=== PATIENT | male | born 1955 | race Caucasian/White ===

== ENCOUNTER → 2020-01-23 16:42 | Outpatient (CLI) | payer MEDICAID, SELFPAY ==
[2020-01-23 17:01] LABS: Basophils # 0.1 K/mm3 (0-0.2); Basophils % 0.7 % (0.1-2.0); Eosinophils # 0.6 K/mm3 (0.0-0.4); Eosinophils % 7.2 % (0.1-12.0); Hematocrit 41.8 % (42.0-52.0); Hemoglobin 14.1 g/dL (14.1-18.0); Lymphocytes # 1.5 K/mm3 (0.7-4.5); Lymphocytes % 17.8 % (10-50); Mean Corpuscular HGB Conc 33.8 g/dL (31.8-35.4); Mean Corpuscular Hemoglobin 29.9 pg (27.0-31.2); Mean Corpuscular Volume 88.6 fl (80-94); Mean Platelet Volume 7.2 fl (7.4-10.4); Monocytes # 0.5 K/mm3 (0.1-1.0); Monocytes % 5.8 % (1.7-9.3); Neutrophils # 5.8 K/mm3 (1.8-7.8); Neutrophils % 68.6 % (37.0-80.0); Platelet Count 274 K/mm3 (142-424); Red Blood Count 4.71 M/mm3 (4.60-6.20); Red Cell Distribution Width 13.6 % (11.5-17.5); White Blood Count 8.4 K/mm3 (4.8-10.8)
[2020-01-23 17:51] LABS: Alanine Aminotransferase 55 U/L (12-78); Albumin Level 4.2 g/dl (3.5-5.0); Albumin/Globulin Ratio 1.6 (1.1-1.8); Alkaline Phosphatase 81 U/L (38-126); Anion Gap 9.9 mEq/L (5-15); Aspartate Amino Transferase 34 U/L (17-59); Bilirubin,Total 0.2 mg/dl (0.2-1.3); Blood Urea Nitrogen 12 mg/dl (9-20); Calcium 9.4 mg/dl (8.4-10.2); Carbon Dioxide 29 mmol/L (22.0-30.0); Chloride 104 mmol/L (98-107); Estimated Glomerular Filt Rate 114 ml/min (>60); GFR (African American) 138 ML/MIN (>60); Globulin 2.7 g/dL (1.3-3.2); Glucose 105 mg/dl (74-100); Potassium 3.9 mmoL/L (3.5-5.1); Sodium 139 mmol/L (136-145); Total Protein,Serum 6.9 g/dl (6.3-8.2)
[2020-01-23 18:07] LABS: Free T4 (Free Thyroxine) 0.96 ng/dl (0.78-2.19)
[2020-01-23 18:22] LABS: Thyroid Stimulating Hormone 5.15 uIU/mL (0.465-4.68)
== END ==
PROVIDERS: Visit Provider Emergency Medicine
DX: R60.9 Edema, unspecified (principal)
CPT/HCPCS: 80053; 84439; 84443; 85025

== ENCOUNTER → 2020-01-27 15:49 | Outpatient (CLI) | payer MEDICAID, SELFPAY ==
--- NOTE | 2020-01-27 15:50 | CA_ITS ---
APPROVED REPORT Bilateral Lower Extremity Venous Study for DVT. [employer]: Lisset Rosa RT(R) Indications Lower Extremity Pain: Bilateral Lower Extremity Edema: Bilateral Current Smoker legs swelling X 3 weeks. Risk Factors Obesity Current Smoker Medications Patient started Lasix 01/23/20 Vein Imaging CFV (R): compressive, spontaneous, phasic, augmentation FEM (R): compressive, spontaneous, phasic, augmentation POP (R): compressive, spontaneous, phasic, augmentation PTV (R): Compressible GSV (R): compressive, spontaneous, phasic, augmentation SSV (R): Compressible Peroneals (R):Compressible GAS (R): Compressible CFV (L): compressive, spontaneous, phasic, augmentation FEM (L): compressive, spontaneous, phasic, augmentation POP (L): compressive, spontaneous, phasic, augmentation PTV (L): Compressible GSV (L): compressive, spontaneous, phasic, augmentation SSV (L): Compressible Peroneals (L):Compressible GAS (L): Compressible Conclusion No evidence of DVT or superficial thrombophlebitis in the veins scanned of the left lower extremity. No evidence of DVT or superficial thrombophlebitis in the veins scanned of the right lower extremity. Interstitial edema noted in bilateral extremities. Rt groin lymph node 2.4 cm x 0.8 cm Lt groin lymph node 2.5 cm x 0.9 cm Electronically signed by : Radu Centeno MD 01/27/2020 17:25:30
== END ==
PROVIDERS: PCP Emergency Medicine; Visit Provider Emergency Medicine
DX: M79.89 Other specified soft tissue disorders (principal); R60.0 Localized edema
CPT/HCPCS: 93970

== ENCOUNTER → 2020-02-04 15:46 | Outpatient (CLI) | payer MEDICAID, SELFPAY | PROVIDERS: Visit Provider Emergency Medicine | DX: L03.90 Cellulitis, unspecified (principal); M79.661 Pain in right lower leg; R60.0 Localized edema; M79.89 Other specified soft tissue disorders; Z72.0 Tobacco use | CPT/HCPCS: 87070; 87077; 87186; 87205 ==

== ENCOUNTER 2020-03-02 14:00 | Outpatient (RCR) | payer MEDICAID, SELFPAY ==
--- NOTE | 2020-02-04 15:49 | HMH.PTOPWND ---
Rehab Outpt Wound Evaluation Rehab OP Wound Evaluation Start: 02/04/20 15:10 Freq: Status: Active Protocol: Document 02/04/20 15:38 LEIGHA (Rec: 02/04/20 15:49 PHORNE [id number]) Electronically Signed By Jeffrey Cortes, PT 02/04/20 15:38 Subjective/History History History Pt is 64 yowm who presents with c/o increased B LE edema x ~ 3-4 wks with insidious onset of symptoms. He reports no c/o pain, but states They are really itchy and heavy feeling. He reports the edema reduces some with propping of the legs and worsens throughout the day whil he is up. H does reports multiple open, weeping sores on B lower legs, R > L. He has obvious blanchable erythema to B lower legs at this time. He also has apparent rash, likely dermatits of some form on B LE . He reports abdominal open ulcer repair some 4-5 yrs ago, but no other PMH. Subjective Subjective Currently no c/o pain, but 2/4 tenderness to palpation in B lower legs. 2+ pitting edema noted on the dorsum of B feet, but otherwise more stiff and fibrotic in nature. Lymphedema Eval Classification of Lymphedema Secondary Lymphedema Yes: likely cellulitis Stemmer's sign Stemmer's Sign yes Stage of Lymphedema Lymphedema stages Stage I (Pitting edema, reduces w/ elevation, no fibrosis) Skin Changes Dry Skin Yes Hyperkeratosis Yes: mild Redness Yes: blanchable erythema Wounds Yes: mult open, weeping sores Discoloration of Skin Yes Other Changes Yes Affected Extremities Areas Affected by Lymphedema/Edema Right Lower Extremity,Left Lower Extremity Manual Lymphatic Drainage Treatment Area MLD Treatment Area Right Lower Extremity,Left Lower Extremity Wound Problems/Impairments Impairments Problems/Impairmments Palpation Tenderness,Impaired Walking,Impaired Recreational Activities,Increased Edema,
== END 2020-03-02 14:05 | disposition home or self-care (01) ==
LOC: PT 14:00
PROVIDERS: PCP Emergency Medicine; Visit Provider Emergency Medicine
DX: R60.0 Localized edema (principal); M79.662 Pain in left lower leg; M79.661 Pain in right lower leg
CPT/HCPCS: 29580; 97140; 97162; 97597; 97760

== ENCOUNTER 2020-06-01 22:18 | Emergency (ER) | payer MEDICAID, SELFPAY ==
[2020-06-01 22:33] VITALS: BP 99/56; PULSE 98; RESP 16; O2SAT 97; BMI 32.3
--- NOTE | 2020-06-01 22:42 | HMH.EDMCLR ---
ED Disposition Clinical Impression: Medical clearance for incarceration Disposition: Home, Self-Care Condition on Discharge: Good Instructions: DI for Drug Abuse and Drug Addiction Additional Instructions: call pcp for follow up Referrals: Nate Serrano MD [Primary Care Provider] - - Critical Care Critical Care Time: No Attestation: On 06/01/20, the high probability of a clinically significant, sudden or life threatening deterioration of the following system(s) required my full and direct attention, intervention and personal management. The time I documented below is in addition to time spent performing reported procedures but includes the following listed in this critical care notation. Medical Decision Making - Medical Records Medical records reviewed: Yes: I reviewed the patient's medical records. - John Inquiry Pt receiving controlled substance: No Vital Signs: 06/01/20 22:33 Pulse Rate [Right Brachial] 98 H Respiratory Rate 16 Blood Pressure [Right Arm] 99/56 L Blood Pressure Mean [Right Arm] 70 Blood Pressure Source [Right Arm] Automatic Cuff Blood Pressure Position [Right Arm] Sitting 02 Sat by Pulse Oximetry 97 Oxygen Delivery Method Room Air Medical Clearance HPI - General Chief complaint: Medical Clearance Stated complaint: Medical Clearance Time Seen by Provider: 06/01/20 22:40 Mode of Arrival: Ambulatory Source of Information: Patient, Medical Record Description of Symptoms (Recalled from ER Triage Doc. by RN): Patient brought in by Krissy SUAREZ for medical clearance. - History of Present Illness HPI Narrative: no specific c/o MD complaint: medical clearance requested Onset (ago): hour(s) Reason for Medical Clearance: intoxication Place: home Alleged Intoxication: Yes Traumatic Symptoms: denies traumatic injury Associated Symptoms: denies other symptoms Treatments Prior to Arrival: none Home medications: Previous Rx's Medication Instructions Recorded furosemide 20 mg tablet 20 mg PO BID #20 tab 01/27/20 clindamycin HCl 300 mg capsule 300 mg PO QID 10 Days #40 cap 02/18/20 Allergies/Adverse reactions: Allergies Allergy/AdvReac Type Severity Reaction Status Date / Time No Known Allergies Allergy Verified 01/27/20 14:58 [facility] History - Hepatitis A Screen Drug use history?: No High risk sexual behaviors?: No History of sexually transmitted infection?: No Currently employed?: No Childcare worker?: No Do you have indoor plumbing?: Yes Do you have electricity?: Yes Attestation statement:: This patient has been screened for Hepatitis A risk factors. I have reviewed the patient's past medical history: Yes Amputation: No Fractures: No - Social History Smoking Status: Current every day smoker # Packs/Day (cigarettes): 1 #Yrs smoked (if former smoker): 4 Alcohol Intake: never Occupational Status: unemployed ROS Obtained: Yes All systems reviewed & no additional complaints - Constitutional Constitutional: Denies fever(s) - Eyes Eyes: Denies change in vision - ENT Ears, Nose, Mouth, and Throat: Denies sore throat - Cardiovascular Cardiovascular: Denies chest pain - Respiratory Respiratory: No cough - Gastrointestinal Gastrointestingal: Denies: abdominal pain - Genitourinary Male Genitourinary: Denies hematuria - Musculoskeletal Musculoskeletal: Denies joint pain - Integumentary/Breasts Skin/Breast: Denies rash - Neurologic Neurologic: Denies seizure-like activity Physical Exam - General General appearance: alert - Head Head exam: normocephalic - Eye Eye exam: Present: PERRL, EOMI - ENT ENT exam: Present: mucous membranes moist - Neck Neck exam: Present: trachea midline - Respiratory Respiratory exam: Absent: respiratory distress - Cardiovascular Cardiovascular exam: Present: regular rate - Abdominal Exam Abdominal exam: Present: soft - Extremities Exam Extremities exam: Present: full ROM
[2020-06-01 22:49] VITALS: BP 120/75; PULSE 82; RESP 19; TEMP 36.9; O2SAT 98
== END 2020-06-01 22:52 | disposition home or self-care (01) ==
PROVIDERS: Emergency Provider Emergency Medicine; PCP Emergency Medicine
DX: Z00.8 Encounter for other general examination (principal); F17.210 Nicotine dependence, cigarettes, uncomplicated
CPT/HCPCS: 36415; 99282

== ENCOUNTER 2020-06-07 19:28 | Emergency (ER) | payer MEDICAID, SELFPAY ==
[2020-06-07 19:17] VITALS: BP 143/73; PULSE 95; RESP 16; TEMP 37.5; O2SAT 96; BMI 33.0
[2020-06-07 19:30] VITALS: BP 139/78; PULSE 84; RESP 18; O2SAT 96
[2020-06-07 19:40] LABS: Basophils # 0.1 K/mm3 (0-0.2); Basophils % 0.6 % (0.1-2.0); Eosinophils # 0.9 K/mm3 (0.0-0.4); Eosinophils % 9.9 % (0.1-12.0); Hematocrit 36.3 % (42.0-52.0); Hemoglobin 12.3 g/dL (14.1-18.0); Lymphocytes # 1.6 K/mm3 (0.7-4.5); Lymphocytes % 17.8 % (10-50); Mean Corpuscular Hemoglobin 29.3 pg (27.0-31.2); Mean Corpuscular Volume 86.2 fl (80-94); Mean Platelet Volume 7.2 fl (7.4-10.4); Monocytes # 0.5 K/mm3 (0.1-1.0); Monocytes % 5.9 % (1.7-9.3); Neutrophils # 5.9 K/mm3 (1.8-7.8); Neutrophils % 65.8 % (37.0-80.0); Platelet Count 322 K/mm3 (142-424); Red Blood Count 4.22 M/mm3 (4.60-6.20); Red Cell Distribution Width 14.6 % (11.5-17.5)
[2020-06-07 19:46] LABS: Alanine Aminotransferase 29 U/L (12-78); Albumin Level 3.5 g/dl (3.5-5.0); Albumin/Globulin Ratio 1.1 (1.1-1.8); Alkaline Phosphatase 92 U/L (38-126); Anion Gap 12.9 mEq/L (5-15); Aspartate Amino Transferase 35 U/L (17-59); Bilirubin,Total 0.3 mg/dl (0.2-1.3); Blood Urea Nitrogen 8 mg/dl (9-20); Calcium 8.9 mg/dl (8.4-10.2); Carbon Dioxide 27 mmol/L (22.0-30.0); Chloride 103 mmol/L (98-107); Creatinine Clearance Estimated 123 mL/min (50-200); Estimated Glomerular Filt Rate 98 ml/min (>60); GFR (African American) 119 ML/MIN (>60); Globulin 3.1 g/dL (1.3-3.2); Glucose 115 mg/dl (74-100); Sodium 140 mmol/L (136-145); Total Protein,Serum 6.6 g/dl (6.3-8.2)
[2020-06-07 19:55] LABS: Acetaminophen < 10 ug/ml (10-30); Ethyl Alcohol < 10 mg/dl (0-10); Potassium 2.9 mmoL/L (3.5-5.1); Salicylate < 1.0 mg/dL (2.0-20.0)
[2020-06-07 20:00] VITALS: BP 134/80; PULSE 87; RESP 18; O2SAT 96
--- NOTE | 2020-06-07 20:10 | PC.NURSE ---
pt daughter and son called for pt update. this nurse and Vivian at bedside when pt stated that is was okay to give family full update including drug use.
[2020-06-07 20:29] VITALS: BP 135/78; PULSE 82; RESP 18; O2SAT 96
--- NOTE | 2020-06-07 20:31 | HMH.EDOD ---
ED Disposition Clinical Impression: Opiate abuse, continuous, Drug intoxication, Hypokalemia Disposition: Home, Self-Care Condition on Discharge: Good Instructions: DI for Drug Overdose in Adults Referrals: PCP,No [Primary Care Provider] - - Critical Care Critical Care Time: No Attestation: On 06/07/20, the high probability of a clinically significant, sudden or life threatening deterioration of the following system(s) required my full and direct attention, intervention and personal management. The time I documented below is in addition to time spent performing reported procedures but includes the following listed in this critical care notation. Medical Decision Making - Medical Records Medical records reviewed: Yes: I reviewed the patient's medical records. - John Inquiry Pt receiving controlled substance: No Vital Signs: 06/07/20 19:17 06/07/20 19:30 06/07/20 20:00 Temperature 99.5 F Temperature Source Oral Pulse Rate [Left Radial] 95 H 84 87 Respiratory Rate 16 18 18 Blood Pressure [Right Arm] 143/73 H 139/78 134/80 Blood Pressure Mean [Right Arm] 96 98 98 Blood Pressure Source [Right Arm] Automatic Cuff Automatic Cuff Automatic Cuff Blood Pressure Position [Right Arm] Sitting Supine Supine 02 Sat by Pulse Oximetry 96 96 96 Oxygen Delivery Method Room Air Room Air Room Air 06/07/20 20:29 Temperature Temperature Source Pulse Rate [Left Radial] 82 Respiratory Rate 18 Blood Pressure [Right Arm] 135/78 Blood Pressure Mean [Right Arm] 97 Blood Pressure Source [Right Arm] Automatic Cuff Blood Pressure Position [Right Arm] Supine 02 Sat by Pulse Oximetry 96 Oxygen Delivery Method Room Air - Lab Data Lab results reviewed: Yes: I reviewed the patient's lab results. Lab Results 06/07/20 19:25: WBC 9.0, RBC 4.22 L, Hgb 12.3 L, Hct 36.3 L, MCV 86.2, MCH 29.3, MCHC 34.0, RDW 14.6, Plt Count 322, MPV 7.2 L, Neut % (Auto) 65.8, Lymph % (Auto) 17.8, [place] % (Auto) 5.9, Eos % (Auto) 9.9, Baso % (Auto) 0.6, Neut # (Auto) 5.9, Lymph # (Auto) 1.6, [place] # (Auto) 0.5, Eos # (Auto) 0.9 H, Baso # (Auto) 0.1 06/07/20 19:25: Sodium 140, Potassium 2.9 L*, Chloride 103, Carbon Dioxide 27, Anion Gap 12.9, BUN 8 L, Creatinine 0.80, Estimated Creat Clear 123, Estimated GFR 98, Est GFR ( Amer) 119, Glucose 115 H, Calcium 8.9, Total Bilirubin 0.3, AST 35, ALT 29, Alkaline Phosphatase 92, Total Protein 6.6, Albumin 3.5, Globulin 3.1, Albumin/Globulin Ratio 1.1, Salicylates < 1.0 L, Acetaminophen < 10 L 06/07/20 19:25: Plasma/Serum Alcohol < 10 Result diagrams: 06/07/20 19:25 06/07/20 19:25 Orders (Tests/Meds): ED MEDICATIONS Generic Name Dose Route Start Last Admin Trade Name Freq PRN Reason Stop Dose Admin Sodium Chloride 1,000 mls @ 999 mls/hr 06/07/20 19:45 06/07/20 19:40 Sod Chlor 0.9% 1000ml Bag IV 06/07/20 20:45 999 mls/hr .[id number] CALIN Administration ORDERS Category Date Time Status Drug Screen,Urine Stat Lab 06/07/20 20:16 Received Overdose HPI - General Chief Complaint: Overdose Stated Complaint: lethargic Time Seen by Provider: 06/07/20 19:28 Mode of Arrival: EMS Limitations: No Limitations Description of Symptoms (Recalled from ER Triage Doc. by RN): per EMS pt family called 911 because pt was lethargic when family tried to wake him up. when speaking with pt pt stated he snorted heroine around 5pm and the next thing he remembered was his family trying to wake him up with EMS. - History of Present Illness HPI Narrative: 64-year-old gentleman presents the emergency department status post overdose. Apparently earlier today he was snorting some heroin and he fell asleep and his family woke him up from his nap per patient and called 911. Here in the ED he is mildly lethargic but he is alert and oriented x4 and states that he uses heroin on a daily basis and he always takes naps after he uses the drug. Patient has no other complaints.Patient denies any recent coug
[2020-06-07 20:39] VITALS: BP 127/71; PULSE 81; RESP 16; TEMP 37.3; O2SAT 96
[2020-06-07 21:01] LABS: Barbiturates Screen,Urine Negative ng/ml (<200)
[2020-06-07 21:02] LABS: Benzodiazepines Screen,Urine Positive ng/ml (<200)
[2020-06-07 21:03] LABS: Methadone Screen,Urine Negative ng/ml (<300)
[2020-06-07 21:04] LABS: Cannabinoid Screen,Urine Positive ng/ml (<50)
[2020-06-07 21:05] LABS: Opiate Screen,Urine Negative ng/ml (<300)
[2020-06-07 21:06] LABS: Phencyclidine Screen,Urine Negative ng/ml (<25)
[2020-06-11 00:08] LABS: Amphetamine Positive (.); Amphetamines Positive (.); Methamphetamine Positive (.)
[2020-06-11 17:59] LABS: Amphetamine (GC/MS) 1234 ng/mL (Cutoff=500); Methamphetamine (GC/MS) 3438 ng/mL (Cutoff=500)
[2020-06-12 17:46] LABS: Benzoylecgonine (GC/MS) 19060 ng/mL (Cutoff=150); Cocaine + Metabolite Positive (.)
== END 2020-06-07 20:40 | disposition home or self-care (01) ==
PROVIDERS: Emergency Provider Emergency Medicine; PCP Emergency Medicine
DX: F19.929 Other psychoactive substance use, unspecified with intoxication, unspecified (principal); F11.10 Opioid abuse, uncomplicated; E87.6 Hypokalemia; F17.210 Nicotine dependence, cigarettes, uncomplicated
CPT/HCPCS: 80053; 80305; 80324; 80329; 80353; 85025; 96365; 99283

== ENCOUNTER → 2022-04-17 15:13 | Outpatient (CLI) | payer MEDICAID, SELFPAY ==
--- NOTE | 2022-04-17 15:18 | XR_ITS ---
FINAL REPORT CLINICAL HISTORY: knee pain COMPARISON: March 13, 2017 FINDINGS: Three views of the left knee reveal no evidence of fracture or dislocation. The bony alignment is normal. There is mild degenerative change. There is a small joint effusion. No localized soft tissue abnormality is seen. IMPRESSION: Small joint effusion with no acute abnormality identified. Overall similar to prior. Reviewed, Interpreted and Dictated by Rico Reinoso III, MD Transcribed by Yoko Sanchez Authenticated and [facility]
--- NOTE | 2022-04-17 15:18 | XR_ITS ---
FINAL REPORT CLINICAL HISTORY: knee pain COMPARISON: March 13, 2017 FINDINGS: Three views of the right knee reveal no evidence of fracture or dislocation. The bony alignment is normal. There is mild degenerative change. There is no evidence of joint effusion. No localized soft tissue abnormality is identified. IMPRESSION: No acute abnormality identified. Reviewed, Interpreted and Dictated by Rico Reinoso III, MD Transcribed by Yoko Sanchez Authenticated and [facility]
== END ==
PROVIDERS: PCP Emergency Medicine; Visit Provider Nurse Practitioner Family
DX: M25.562 Pain in left knee (principal); M25.561 Pain in right knee
CPT/HCPCS: 73562